=== PATIENT | female | born 1950 ===

== ENCOUNTER → 2023-06-18 14:05 | Outpatient (CLI) | payer MEDICARE, SELFPAY ==
--- NOTE | ~2023-06-18 | CT_ITS ---
Non-contrast CT scan of the Abdomen and Pelvis Clinical indication: UTI, hematuria Technique: 2.5 mm axial scans were obtained through the abdomen and pelvis without intravenous or or al contrast. Dose reduction technique was used on this scan by utilizing automated exposure control a nd iterative reconstruction technique. The dose-length product (DLP) was 156.14 mGy-cm. Findings: Images through the lung bases reveal 2.1 cm ovoid nodular opacity at the anterior inferior right lower lobe, morphology most suggestive of chronic round atelectasis. There is minimal scarring at the lingula and right middle lobe.. There is no evidence of renal or ureteral calculi. The kidneys and the ureters are nondilated. The liver, spleen, pancreas, gallbladder, and adrenals appear normal. There is no aortic aneurysm. There is no evidence of bowel obstruction. Images through the pelvis were performed. There is no evidence of ascites or lymphadenopathy. Urinary bladder unremarkable. No adnexal mass evident. No ascites. Impression: No abnormality of the system identified on this exam. 2.1 cm nodular opacity right lung base, with morphology most suggestive of rounded atelectasis. Other etiologies cannot be completely excluded. Comparison with any outside prior exams would be most usef ul to assess for chronicity of this finding. If there is no such comparison, then consider short-term follow-up CT and/or PET/CT to further evaluate. Reviewed, dictated and finalized at [facility]. Impression: No abnormality of the system identified on this exam. 2.1 cm nodular opacity right lung base, with morphology most suggestive of roun ded atelectasis. Other etiologies cannot be completely excluded. Comparison wit h any outside prior exams would be most useful to assess for chronicity of this finding. If there is no such comparison, then consider short-term follow-up CT and/or PET/CT to further evaluate.
== END ==
DX: N39.0 Urinary tract infection, site not specified (principal); N02.9 Recurrent and persistent hematuria with unspecified morphologic changes; R91.8 Other nonspecific abnormal finding of lung field
CPT/HCPCS: 74176